=== PATIENT | female | born 1985 | race Caucasian/White ===

== ENCOUNTER 2017-01-16 23:59 | Observation (INO) | payer OTHER ==
[2017-01-17] MEDS ORDERED: ONDANSETRON 4 MG TAB.RAPDIS PO ONE (00:16)
[2017-01-17] MEDS ORDERED: ONDANSETRON HCL INJ/PF 4 MG/2 ML SDV IV ONE ×2 (01:52→02:00)
[2017-01-17 01:58] LABS: ABSOLUTE BASOPHILS # (AUTO) 0.1 10^3/uL (0.0-0.2); ABSOLUTE EOSINOPHILS # (AUTO) 0.1 10^3/uL (0.0-0.6); ABSOLUTE LYMPHOCYTES (AUTO) 1.8 10^3/uL (0.5-4.7); ABSOLUTE MONOCYTES (AUTO) 0.4 10^3/uL (0.1-1.4); ABSOLUTE NEUT (AUTO) 15.2 10^3/uL (1.7-8.2); BASOPHILS % (AUTO) 0.5 % (0-2); EOSINOPHILS % (AUTO) 0.3 % (0-6); HEMATOCRIT 44.8 % (36.0-47.0); HEMOGLOBIN 14.3 g/dL (12.0-15.5); HGB HCT DIFFERENCE -1.9; LYMPHOCYTES % (AUTO) 10.1 % (13-45); MEAN CORPUSCULAR HEMOGLOBIN 26.8 pg (27.0-33.4); MEAN CORPUSCULAR VOLUME 84 fl (80-97); MONOCYTES % (AUTO) 2.1 % (3-13); RED BLOOD COUNT 5.34 10^6/uL (3.72-5.28); RED CELL DISTRIBUTION WIDTH 15.5 % (11.5-14.0); WHITE BLOOD COUNT 17.5 10^3/uL (4.0-10.5)
[2017-01-17] MEDS ORDERED: MORPHINE SULFATE 10 MG/ML INJ IV ONE (02:00)
[2017-01-17] MEDS ORDERED: KETOROLAC TROMETHAMINE INJ/PF 30 MG/1 ML SDV IV ONE (02:00)
[2017-01-17] MEDS ORDERED: NORMAL SALINE 1000 ML 1,000 ML IV ONE ×2 (02:01→03:34)
[2017-01-17 02:05] LABS: ALANINE AMINOTRANSFERASE 82 U/L (9-52); ALBUMIN 4.7 g/dL (3.5-5.0); ALKALINE PHOSPHATASE 95 U/L (38-126); ANION GAP 14 (5-19); ASPARTATE AMINO TRANSFERASE 125 U/L (14-36); BILIRUBIN,DIRECT 0.6 mg/dL (0.0-0.4); BILIRUBIN,TOTAL 1.7 mg/dL (0.2-1.3); BLOOD UREA NITROGEN 10 mg/dL (7-20); CARBON DIOXIDE 24 mmol/L (22-30); CHLORIDE 105 mmol/L (98-107); CREATININE RESULT 0.83 mg/dL (0.52-1.25); GLUCOSE 137 mg/dL (75-110); LIPASE 97.6 U/L (23-300); POTASSIUM 4.4 mmol/L (3.6-5.0); SODIUM 142.7 mmol/L (137-145); TOTAL PROTEIN 8.4 g/dL (6.3-8.2)
--- NOTE | 2017-01-17 02:11 | ER Document Report ---
ED GI/ - General Chief Complaint: Abdominal Pain Stated Complaint: ABDOMINAL PAIN Time Seen by Provider: 01/17/17 01:49 Notes: The patient is a 31-year-old female, past medical history cholelithiasis during recent , Factor V Leiden (on Lovenox), presents with increasing right upper quadrant abdominal pain, nausea and vomiting. She was told that she was unable to have her gallbladder removed until she is 6 weeks and she is only 23 days . She is breast-feeding and formula feeding her child. She denies hematemesis, diarrhea, constipation, fevers, urinary symptoms , chest pain or shortness of breath. TRAVEL OUTSIDE OF THE [place] IN LAST 30 DAYS: No - Related Data Allergies/Adverse Reactions: Penicillins Allergy (Verified 01/17/17 00:10) Past Medical History - General Information source: Patient - Social History Smoking Status: Never Smoker Family History: Reviewed & Not Pertinent Patient has suicidal ideation: No Patient has homicidal ideation: No Renal/ Medical History: Denies: Hx Peritoneal Dialysis Review of Systems - Review of Systems Notes: REVIEW OF SYSTEMS: CONSTITUTIONAL: -fevers, -chills EENT: -eye pain, -difficulty swallowing, -nasal congestion CARDIOVASCULAR:-chest pain, -syncope. RESPIRATORY: -cough, -SOB GASTROINTESTINAL: +RUQ abdominal pain, +nausea, +vomiting, -diarrhea GENITOURINARY: -dysuria, -hematuria MUSCULOSKELETAL: -back pain, -neck pain SKIN: -rash or skin lesions. HEMATOLOGIC: -easy bruising or bleeding. LYMPHATIC: -swollen, enlarged glands. NEUROLOGICAL: -altered mental status or loss of consciousness, -headache, - neurologic symptoms PSYCHIATRIC: -anxiety, -depression. ALL OTHER SYSTEMS REVIEWED AND NEGATIVE. Physical Exam - Vital signs Vitals: Temp Pulse Resp BP Pulse Ox 97.8 F 62 18 139/95 H 100 01/17/17 00:05 01/17/17 00:05 01/17/17 00:05 01/17/17 00:05 01/17/17 00:05 - Notes Notes: PHYSICAL EXAMINATION: GENERAL: Actively vomiting. Uncomfortable. HEAD: Atraumatic, normocephalic. EYES: Pupils equal round and reactive to light, extraocular movements intact, sclera anicteric, conjunctiva are normal. ENT: nares patent, oropharynx clear without exudates. Moist mucous membranes. NECK: Normal range of motion, supple without lymphadenopathy LUNGS: Breath sounds clear to auscultation bilaterally and equal. No wheezes rales or rhonchi. HEART: Regular rate and rhythm without murmurs ABDOMEN: Soft, moderate RUQ abdominal tenderness, positive Herbert's sign, normoactive bowel sounds. No masses appreciated. EXTREMITIES: Normal range of motion, no pitting or edema. No cyanosis. NEUROLOGICAL: Cranial nerves grossly intact. Normal speech, normal gait. Normal sensory and motor exams. PSYCH: Normal mood, normal affect. SKIN: Warm, Dry, normal turgor, no rashes or lesions noted. Course - Re-evaluation Re-evalutation: Patient has evidence of enlarged CBD with a diameter of 1 cm. Her T bili and direct bili are elevated and she has a leukocytosis with a white count of 17.5. With her positive Turner sign, right upper quadrant pain, nausea, vomiting and laboratory values with enlarged CBD, there is concern about possible cholecystitis. Spoke to Dr. Goodwin at 03:30 and will admit to his service. He recommends keeping patient n.p.o., stopping Lovenox, beginning IV fluids and providing nausea and pain control. Patient comfortable with plan and understands. - Vital Signs Vital signs: Temp Pulse Resp BP Pulse Ox 97.8 F 62 18 139/95 H 100 01/17/17 00:05 01/17/17 00:05 01/17/17 00:05 01/17/17 00:05 01/17/17 00:05 - Laboratory Result Diagrams: 01/17/17 01:36 01/17/17 01:36 Laboratory results interpreted by me: 01/17/17 01/17/17 01:36 01:36 WBC 17.5 H RBC 5.34 H MCH 26.8 L RDW 15.5 H Seg Neutrophils % 87.0 H Lymphocytes % 10.1 L Monocytes % 2.1 L Absolute Neutrophils 15.2 H Glucose 137 H Total Bilirubin 1.7 H Direct Bilirubin 0.6 H AST 125 H ALT 82 H Total Protein 8.4 H - Diagnostic Test Radiology reviewed: Image reviewed, Reports reviewed Radiology results interpreted by me: RUQ US: CBD 1 cm Discharge - Discharge Clinical Impression: Cholecystitis Condition: Stable Disposition: ADMITTED OBSERVATION Admitting Provider: Surgicalist - [facility] Admitted: Surgical Floor
--- NOTE | 2017-01-17 03:13 | RADIOLOGY REPORT (SQ) ---
EXAM DESCRIPTION: U/S ABDOMEN LIMITED W/O DOP COMPLETED DATE/TIME: 01/17/2017 2:51 am REASON FOR STUDY: RUQ pain COMPARISON: None. TECHNIQUE: Dynamic and static grayscale images acquired of the abdomen and recorded on PACS. Additio nal selected color Doppler and spectral images recorded. LIMITATIONS: None. FINDINGS: PANCREAS: No masses. Visualized pancreatic duct normal caliber. LIVER: 21 cm hepatomegaly. Moderate hepatic steatosis. LIVER VASCULATURE: Normal directional flow of the main portal vein and hepatic veins. GALLBLADDER: Several in the urine small gallstones. Normal wall thickness. No pericholecystic fluid. ULTRASOUND-DETECTED DIA'S SIGN: Negative. INTRAHEPATIC DUCTS AND COMMON DUCT: 1.0 cm diameter CBD and intrahepatic ducts normal caliber. No nathan ling defects. INFERIOR VENA CAVA: Normal flow. AORTA: Partially obscured. RIGHT KIDNEY: Normal size. Normal echogenicity. No solid or suspicious masses. No hydronephrosis. No calcifications. PERITONEAL AND RIGHT PLEURAL SPACE: No ascites or effusions. OTHER: No other significant findings. IMPRESSION: 1. There is 1.0 cm diameter enlarged common bile duct ; no intrahepatic ductal enlargem ent. Consider laboratory correlation. 2. Cholelithiasis. 3. Moderate hepatic steatosis and hepat omegaly. TECHNICAL DOCUMENTATION: JOB ID: [id number] [employer]- All Rights Reserved
[2017-01-17] MEDS ORDERED: KETOROLAC TROMETHAMINE INJ/PF 30 MG/1 ML SDV IV PRN (03:35)
[2017-01-17] MEDS ORDERED: CEFAZOLIN INJ 1 GM VIAL IV SCH (06:00)
[2017-01-17] MEDS ORDERED: DEXTROSE 50%-WATER 25 GM/50 ML DISP.SYRIN IV PRN ×4 (06:19→13:37)
[2017-01-17] MEDS ORDERED: GLUCAGON,HUMAN RECOMB 1 MG INJ SUBCUT PRN ×2 (06:19→13:37)
[2017-01-17] MEDS ORDERED: DEXTROSE 40% GEL 15 GM TUBE PO PRN ×4 (06:19→13:37)
[2017-01-17] MEDS ORDERED: CEFAZOLIN 1 GM/D5W RTU 1 GM/50 ML RTUPB IV ONE (06:45)
[2017-01-17] MEDS: HYDROMORPHONE HCL INJ/PF 2 MG/ML AMPULE IV PRN ×2 (07:54→07:56)
[2017-01-17] MEDS: ONDANSETRON HCL INJ/PF 4 MG/2 ML SDV IV PRN ×2 (07:54→08:05)
--- NOTE | 2017-01-17 07:54 | HISTORY AND PHYSICAL E ---
History and Physical NAME: ALEXX NEAL : 1985 AGE: 31Y ADMITTED: 01/17/2017 ROOM: 533 REFERRING: Dr. Menendez, emergency department. CHIEF COMPLAINT: Abdominal pain. HISTORY OF PRESENT ILLNESS: The patient is a 31-year-old obese, white female with a known history of cholelithiasis. She presents to the emergency department complaining of acute onset abdominal pain and multiple episodes of nausea and vomiting. The patient reports approximately 6 months ago she developed abdominal pain, nausea, and vomiting while . She has had approximately 4 episodes since then. In October, she was worked up in [place] where she is originally from where she had a gallbladder ultrasound, which showed cholelithiasis. Patient delivered a term intrauterine approximately 24 days ago. She now presents to the emergency department with again worsening pain, and in the emergency department, was found to have a leukocytosis and gallbladder ultrasound showing evidence of dilated common bile duct. Surgery was consulted and she was advised admission. PAST MEDICAL HISTORY: Significant for: 1. Obesity. 2. Leiden factor V mutation. 3. History of DVT left calf approximately 4 years ago, treated with Xarelto, Lovenox, and Coumadin for 1 year. Regarding factor V mutation, which was diagnosed May 2016, patient has been on Lovenox 60 mg subcu daily, including the period. FAMILY HISTORY: Significant for gallstones. SOCIAL HISTORY: Significant for no smoking. ALLERGIES: Include all of the CILLINS. REVIEW OF SYSTEMS: CONSTITUTIONAL: Patient states none. CARDIOVASCULAR: None. RESPIRATORY: None. GASTROINTESTINAL: As per HPI. Last bowel movement normal yesterday. GENITOURINARY: Patient denies. NEUROLOGIC: Patient denies. PHYSICAL EXAMINATION: GENERAL: Patient examined on fifth floor of [facility]. No acute distress. Patient is sleeping with a whispering voice because of sore throat. VITAL SIGNS: Stable. She is not tachycardic. HEENT: Eyes without icterus. NECK: No adenopathy. LUNGS: Diminished in the bases bilaterally. HEART: Without murmur or gallop. ABDOMEN: Obese, soft. No peritoneal signs. No rigidity. No guarding. Remainder of examination is grossly unremarkable. LABORATORY PROFILE: White blood cell count 17,500, hemoglobin of 14.3, platelets of 288. Electrolytes within normal limits. Blood sugar of 137, total bilirubin of 1.7. AST, ALT 125 and 82, total protein 8.4. Gallbladder ultrasonography shows a 1 cm enlarged common bile duct, no intrahepatic ductal dilatation, cholelithiasis. IMPRESSION: 1. Symptomatic cholelithiasis, with cholecystitis associated with leukocytosis and abnormal liver function studies. 2. Abnormal liver function studies, possibly secondary to cholecystitis; cannot rule out common bile duct stone passage. 3. Dilated common bile duct on ultrasonography; see above. 4. Obesity. 5. Anticoagulated on Lovenox. 6. Leiden factor V mutation with history of DVT left calf 4 years ago. 7. Recent 24 days. RECOMMENDATIONS: 1. Admission to surgicalist service, n.p.o. on IV fluids intravenous antibiotics. 2. Will repeat liver function studies and hold Lovenox; patient may benefit from ERCP prior to interval cholecystectomy; discussed with patient she is admitted to the surgicalist service and will be cared for by a variety of surgical providers. DICTATING PHYSICIAN: LEANN ALVARADO M.D. [id number] PHY#: [id number] ID: [id number] JOB#: [id number] ACCT: [id number] cc:Carmelina WOLFE MD
[2017-01-17] MEDS ORDERED: HYDROMORPHONE HCL INJ/PF 2 MG/ML AMPULE IV PRN (08:39)
[2017-01-17] MEDS ORDERED: ONDANSETRON HCL INJ/PF 4 MG/2 ML SDV IV PRN (08:39)
[2017-01-17] MEDS: ERTAPENEM SODIUM 1 GM in NORMAL SALINE 50 ML IV SCH (09:52)
[2017-01-17] MEDS: KETOROLAC TROMETHAMINE INJ/PF 30 MG/1 ML SDV IV PRN ×2 (09:52→22:09)
[2017-01-17 13:30] LABS: ALANINE AMINOTRANSFERASE 78 U/L (9-52); ALBUMIN 3.3 g/dL (3.5-5.0); ALKALINE PHOSPHATASE 71 U/L (38-126); ASPARTATE AMINO TRANSFERASE 68 U/L (14-36); BILIRUBIN,DIRECT 0.2 mg/dL (0.0-0.4); BILIRUBIN,TOTAL 1.1 mg/dL (0.2-1.3); TOTAL PROTEIN 5.9 g/dL (6.3-8.2)
--- NOTE | 2017-01-17 13:36 | PDOC PROGRESS REPORT ---
Subjective Progress Note for:: 01/17/17 Subjective:: The patient is without complaints at this time. Physical Exam Vital Signs: Temp Pulse Resp BP Pulse Ox 98.7 F 72 18 117/69 98 01/17/17 07:48 01/17/17 07:48 01/17/17 07:48 01/17/17 07:48 01/17/17 07:48 General appearance: PRESENT: no acute distress Head exam: PRESENT: normocephalic Eye exam: PRESENT: conjunctiva pink Mouth exam: PRESENT: moist, neck supple, tongue midline Respiratory exam: PRESENT: clear to auscultation mar Cardiovascular exam: PRESENT: RRR GI/Abdominal exam: PRESENT: tenderness - Mild right upper quadrant tenderness Results Impressions: Abdomen Ultrasound 01/17/17 01:50 IMPRESSION: 1. There is 1.0 cm diameter enlarged common bile duct ; no intrahepatic ductal enlargement. Consider laboratory correlation. 2. Cholelithiasis. 3. Moderate hepatic steatosis and hepatomegaly. Assessment & Plan - Diagnosis (1) Cholelithiasis Qualifiers: Cholelithiasis location: gallbladder - Plan Summary Plan Summary: We will plan for laparoscopic cholecystectomy in the a.m., and will hold [employer].
[2017-01-17] MEDS ORDERED: CEFAZOLIN 1 GM/D5W RTU 1 GM/50 ML RTUPB IV SCH (14:00)
--- NOTE | 2017-01-17 16:34 | Physician Advisory Note ---
Physician Advisor ProgressNote .: Pursuant to the plan for [facility], I have reviewed the medical record for this patient. Physician Advisor Statement: Please consider documentin. "hepatic steatosis"/fatty liver dz Status: discussed w/today's attending. He thought pt Obs, & expects typical lap rachel in AM without add'l complications or extra time in hospital needed related to her co-morbidities. Appropriate for Obs for now. DIscussion: 31yo, 2wks , w/chronic Lovenox for Factor V Leiden mutation, repeated bouts of biliary colic/sc-atic cholelithiasis, back in actively vomiting w/abd tenderness, (+)Turner's sign, enlarged CBD & elevated LFTs concerning for CBD stone that might or might not be passing/just passed. Repeat LFTs improving, so ERCP not required. For routine lap rachel in AM. Thanks! CK
[2017-01-17 18:50] LABS: ALANINE AMINOTRANSFERASE 85 U/L (9-52); ALBUMIN 3.5 g/dL (3.5-5.0); ALKALINE PHOSPHATASE 69 U/L (38-126); ASPARTATE AMINO TRANSFERASE 55 U/L (14-36); BILIRUBIN,DIRECT 0.3 mg/dL (0.0-0.4); BILIRUBIN,TOTAL 1.2 mg/dL (0.2-1.3); TOTAL PROTEIN 5.8 g/dL (6.3-8.2)
[2017-01-18] MEDS ORDERED: BUPIVACAINE HCL 0.5 % INJ/PF 30 ML SDV ONE (07:49)
[2017-01-18] MEDS ORDERED: GLYCOPYRROLATE INJ 0.4 MG/2 ML VIAL ONE (09:02)
[2017-01-18] MEDS ORDERED: DEXAMETHASONE SOD PHOSPHATE INJ 4 MG/1 ML VIAL ONE (09:02)
[2017-01-18] MEDS ORDERED: ONDANSETRON HCL INJ/PF 4 MG/2 ML SDV ONE (09:02)
[2017-01-18] MEDS ORDERED: LIDOCAINE 2% INJ-PF (20 MG/ML) 10 ML AMPUL ONE (09:02)
[2017-01-18] MEDS ORDERED: ROCURONIUM BROMIDE INJ 50 MG/5 ML VIAL IV ONE (09:02)
[2017-01-18] MEDS ORDERED: SUCCINYLCHOLINE CHLORIDE INJ 200 MG/10 ML VIAL ONE (09:02)
[2017-01-18] MEDS ORDERED: FENTANYL CITRATE INJ/PF 250 MCG/5 ML AMPULE ONE (10:16)
[2017-01-18] MEDS ORDERED: FENTANYL CITRATE INJ/PF 100 MCG/2 ML AMPUL ONE ×3 (10:16→13:09)
[2017-01-18] MEDS ORDERED: PROPOFOL INJ 200 MG/20 ML VIAL IV ONE (10:17)
[2017-01-18] MEDS ORDERED: MORPHINE SULFATE 10 MG/ML INJ ONE (10:17)
[2017-01-18] MEDS ORDERED: MIDAZOLAM 2 MG/2 ML INJ ONE (10:17)
[2017-01-18] MEDS ORDERED: ACETAMINOPHEN 100 ML IV ONE (10:17)
[2017-01-18] MEDS ORDERED: LEVOFLOXACIN 500 MG/D5W RTU 500 MG/100 ML RTUPB IV ONE (10:30)
[2017-01-18] MEDS ORDERED: PROMETHAZINE HCL INJ 25 MG/1 ML VIAL IV PRN ×2 (11:11)
[2017-01-18] MEDS ORDERED: MORPHINE SULFATE 10 MG/ML INJ IV PRN (11:11)
[2017-01-18] MEDS ORDERED: MEPERIDINE HCL/PF INJ 25 MG/1 ML DISP.SYRIN IV PRN (11:11)
[2017-01-18] MEDS ORDERED: FENTANYL CITRATE INJ/PF 100 MCG/2 ML AMPUL IV PRN ×3 (11:11)
[2017-01-18] MEDS ORDERED: DIPHENHYDRAMINE HCL 50 MG/ML VIAL IV PRN (11:11)
[2017-01-18] MEDS ORDERED: OXYCODONE-ACETAMINOPHEN 5-325 MG TABLET PO PRN ×3 (11:11→22:56)
[2017-01-18] MEDS ORDERED: ONDANSETRON HCL INJ/PF 4 MG/2 ML SDV IV PRN (12:58)
--- NOTE | 2017-01-18 13:49 | OPERATIVE REPORT E ---
Operative Report NAME: ALEXX NEAL : 1985 AGE: 31Y DATE OF SURGERY: 01/18/2017 ROOM: 533 PREOPERATIVE DIAGNOSIS: Cholelithiasis causing biliary colic and acute cholecystitis. POSTOPERATIVE DIAGNOSIS: Cholelithiasis causing biliary colic and acute cholecystitis. PROCEDURE: Laparoscopic cholecystectomy. SURGEON: IZZY WEBER M.D. ANESTHESIA: General. REPLACEMENT: Crystalloids. DRAINS: None. COMPLICATIONS: None. CONDITION: Stable. FINDINGS: The patient had cholelithiasis, biliary colic and acute cholecystitis with a 17,000 white count. Bilirubin was originally up to 1.7 but came down to 1.2 before surgery. Patient at the time of exploration had a very short cystic duct but no evidence of chronic cholecystitis. PROCEDURE: Patient was brought to the operating suite and placed in a supine position on the operating room table. Monitoring devices were attached. IV sedation was administered followed by the induction of general endotracheal anesthesia. Patient's abdomen was prepped and draped in the usual sterile manner and then time out was achieved. When all concurred, Marcaine was injected just below the umbilicus and then a curvilinear incision was made through skin and subcutaneous tissue down to the linea alba. Two 0-Vicryl stay sutures were placed in the linea alba and an opening was made there. We then grasped the peritoneum with 2 hemostats and made an incision between the clamps and entered the peritoneal cavity. Digital exploration was done to ensure no adherence of viscera was noted. We then inserted the Ashok trocar and secured it with the 2-0 Vicryl stay sutures. We then began to insufflate the abdomen and inserted the laparoscopic camera and light source. We saw no evidence of any bleeding or injuries. We then placed our remaining 3 trocars in the usual anatomic position, and we noted a markedly distended gallbladder. We then aspirated the gallbladder and obtained approximately 100 mL of dark green bile. We then retracted the fundus of the gallbladder over the top of the liver and began to dissect Calot triangle. The patient was found to have a high-riding common bile duct, but this was noted and we dissected close to the gallbladder and isolated the cystic duct very nicely. We attempted a transcystic cholangiogram but there was leakage around the catheter. However, we decided to abandon any further attempts at this time of cholangiogram and we placed a hemoclip on the cystic duct close to the gallbladder and divided the cystic duct close to the gallbladder. We encountered the cystic artery which was on the lateral side of the common duct on the other side of the Calot triangle. This was hemoclipped and divided between clips. We then dissected the gallbladder off the liver using articulating scissors and cautery. We took it down antegrade first and then retrograde. After dissecting the gallbladder from the liver we placed it in an Endobag and removed it from the abdominal cavity. We then irrigated the gallbladder bed and hemostasis was accomplished using the cautery and Surgicel. After adequate hemostasis was assured we used a Yobani-Godfrey device to place our 0-Vicryl tie at the 10-mm trocar site in the upper abdomen and once this was placed we removed all trocars under direct vision and decompressed the abdomen. We then closed the infraumbilical incision using continuous 0 Vicryl on a UR-6 needle and then all skin incisions were closed using skin chanell. The patient tolerated the procedure well. Sponge and instrument counts were correct. The patient was discharged to the PACU in stable condition. DICTATING PHYSICIAN: IZZY WEBRE M.D. [id number] PHY#: [id number] ID: [id number] JOB#: [id number] ACCT: [id number] cc:IZZY WEBER M.D. >
[2017-01-18] MEDS: ERTAPENEM SODIUM 1 GM in NORMAL SALINE 50 ML IV SCH (14:33)
[2017-01-18] MEDS: KETOROLAC TROMETHAMINE INJ/PF 30 MG/1 ML SDV IV PRN (17:59)
[2017-01-19] MEDS ORDERED: ENOXAPARIN SODIUM INJ 60 MG/0.6 ML DISP.SYRIN SUBCUT SCH (08:00)
--- NOTE | 2017-01-19 08:12 | PDOC PROGRESS REPORT ---
Subjective Progress Note for:: 01/19/17 Subjective:: Feels well. Some discomfort at the incisions. Tolerating diet. Physical Exam Vital Signs: Temp Pulse Resp BP Pulse Ox 98.5 F 70 16 114/70 96 01/19/17 03:54 01/19/17 03:54 01/18/17 19:43 01/19/17 03:54 01/19/17 03:54 Intake & Output 01/18/17 01/19/17 01/20/17 06:59 06:59 06:59 Intake Total 750 4050 Output Total 1200 5030 Balance -450 -980 Weight 124.28 kg 57.606 kg General appearance: PRESENT: no acute distress, cooperative Respiratory exam: PRESENT: clear to auscultation mar Cardiovascular exam: PRESENT: RRR GI/Abdominal exam: PRESENT: other - Soft, nondistended, mild tenderness at the incision sites which are clean dry and intact with no erythema. Extremities exam: PRESENT: other - No swelling Results Impressions: Abdomen Ultrasound 01/17/17 01:50 IMPRESSION: 1. There is 1.0 cm diameter enlarged common bile duct ; no intrahepatic ductal enlargement. Consider laboratory correlation. 2. Cholelithiasis. 3. Moderate hepatic steatosis and hepatomegaly. Assessment & Plan - Diagnosis (1) Cholecystitis Is this a current diagnosis for this admission?: YesPlan: Doing well. Discharge patient home. Follow-up next week.
--- NOTE | 2017-01-19 08:38 | DISCHARGE SUMMARY E ---
Discharge Summary NAME: ALEXX NEAL : 1985 AGE: 31Y ADMITTED: 01/17/2017 DISCHARGED: 01/19/2017 DISCHARGE DIAGNOSIS: Cholecystitis. PROCEDURE PERFORMED DURING HOSPITALIZATION: Laparoscopic cholecystectomy performed by Dr. Jimenez on 01/18/2017. HOSPITAL COURSE: The patient underwent the above-mentioned procedure. She did well postoperatively, was feeling better with a good physical exam, was tolerating a diet. The patient is now being discharged to home in good condition. She will follow up at [facility] next week. She is encouraged to stay active at home but avoid strenuous activity. She may resume her home medications. Additional medication is Percocet 1 p.o. every 4 hours p.r.n. pain. Patient is to discard breastmilk for a couple of days while on Percocet. DICTATING PHYSICIAN: JEB QUINTERO M.D. [id number] PHY#: [id number] ID: [id number] JOB#: [id number] ACCT: [id number] cc:NO Carmelina TILLEY M.D. [facility], [facility]
[2017-01-19] MEDS ORDERED: ENOXAPARIN SODIUM 60 MG SUBCUT SCH (10:00)
[2017-01-19 10:10] VITALS: BP 116/61
== END 2017-01-19 10:25 | disposition home or self-care (01) ==
LOC: ER 23:59 → UNDOADMOB 01-17 03:38 → EH 01-17 03:38 → 5 01-17 04:20 → EH 01-17 04:39 → 5 01-17 04:39 → INTOOBSV 01-17 06:37 → OBSVTOIN 01-17 06:37
PROC: 0FT44ZZ Resection of Gallbladder, Percutaneous Endoscopic Approach (ICD-10-PCS; principal; 2017-01-18 10:30)
DX: O99.63 Diseases of the digestive system complicating the puerperium (principal); K80.10 Calculus of gallbladder with chronic cholecystitis without obstruction; O99.215 Obesity complicating the puerperium; E66.9 Obesity, unspecified; D68.51 Activated protein C resistance; Q44.5 Other congenital malformations of bile ducts; K76.0 Fatty (change of) liver, not elsewhere classified; Z86.718 Personal history of other venous thrombosis and embolism; Z79.899 Other long term (current) drug therapy; Z83.79 Family history of other diseases of the digestive system; Z68.20 Body mass index [BMI] 20.0-20.9, adult
CPT/HCPCS: 99284; 96361; 96374; 96375; 36415; 83690; 85025; 80076; 80053; 88304 ×2; 76705; 47562; Q9967; J2250; J3490 ×2; J1100; S0119; J3010 ×2; J1335 ×2; J1885 ×2; J2270 ×2; J0330; J2405 ×2; J7030; J2704; J0131; 790; G0378